=== PATIENT | female | born 1970 | race Hispanic/Latino ===

== ENCOUNTER → 2018-04-05 09:45 | Outpatient (CLI) | payer BC, SELFPAY ==
[2018-04-05 10:46] LABS: Alanine Aminotransferase 33 IU/L (9-52); Albumin 4.2 g/dL (3.5-5.0); Albumin Globulin Ratio 1.4 (1.0-2.8); Alkaline Phosphatase 78 U/L (38-126); Aspartate Aminotransferase 22 IU/L (14-36); BUN Creatinine Ratio 27.5 (6-22); Bilirubin Total 0.4 mg/dL (0.2-1.3); Blood Urea Nitrogen 22 mg/dL (7-17); Calcium 10.4 mg/dL (8.4-10.2); Carbon Dioxide 29 mmol/L (22-32); Chloride 106 mmol/L (98-107); Cholesterol 167 mg/dL (140-199); Estimated Glomerular Filt Rate > 60.0 mL/min (>60); Globulin 2.9 g/dL (1.7-4.1); Glucose 90 mg/dL (70-100); HDL Cholesterol 56 mg/dL (40-60); HEMOLYSIS < 15 (0-50); LDL Cholesterol Calculated 94 mg/dL (<100); Potassium 5.1 mmol/L (3.4-5.1); Sodium 143 mmol/L (137-145); Total Protein 7.1 g/dL (6.3-8.2); Triglycerides 83 mg/dL (35-150)
== END ==
PROVIDERS: PCP Physician Assistant; Visit Provider Physician Assistant
DX: E34.52 Partial androgen insensitivity syndrome (principal); I10 Essential (primary) hypertension; Z13.220 Encounter for screening for lipoid disorders; Z13.6 Encounter for screening for cardiovascular disorders
CPT/HCPCS: 36415; 80053; 80061

== ENCOUNTER → 2018-08-13 13:15 | Outpatient (CLI) | payer BC, SELFPAY ==
[2018-08-13 14:47] LABS: Calcium 9.5 mg/dL (8.4-10.2)
== END ==
PROVIDERS: PCP Physician Assistant; Visit Provider Physician Assistant
DX: E83.52 Hypercalcemia (principal)
CPT/HCPCS: 36415; 82310

== ENCOUNTER → 2018-10-16 08:49 | Outpatient (CLI) | payer BC, SELFPAY ==
--- NOTE | 2018-10-16 08:51 | DI.MG.S_ITS ---
BILATERAL DIGITAL SCREENING MAMMOGRAM 3D/2D WITH CAD: 10/16/2018 CLINICAL: Routine screening. Comparison is made to exams dated: 03/30/2017 mammogram, 02/01/2015 mammogram, and 04/04/2013 mammogram - [facility]. There are scattered fibroglandular elements in both breasts. Current study was also evaluated with a Computer Aided Detection (CAD) system. No significant masses, calcifications, or other findings are seen in either breast. There has been no significant interval change. IMPRESSION: NEGATIVE There is no mammographic evidence of malignancy. A 1 year screening mammogram is recommended. This exam was interpreted at Station ID: [id number]. NOTE: For mammograms, a report in lay terms will be sent to the patient. Approximately 15% of breast malignancies will not be visualized mammographically. In the management of a palpable breast mass, a negative mammogram must not discourage biopsy of a clinically suspicious lesion. Electronically Signed By: Oz saul/jovita:10/18/2018 10:17:23 letter sent: Normal Exam ACR BI-RADS Category 1: Negative 3341F
== END ==
PROVIDERS: PCP Physician Assistant; Visit Provider Physician Assistant
DX: Z12.31 Encounter for screening mammogram for malignant neoplasm of breast (principal)
CPT/HCPCS: 77063; 77067

== ENCOUNTER → 2019-04-21 13:02 | Outpatient (CLI) | payer BC, SELFPAY | PROVIDERS: PCP Physician Assistant | DX: Z23 Encounter for immunization (principal) | CPT/HCPCS: 90471; 90686 ==

== ENCOUNTER → 2019-04-28 09:26 | Outpatient (CLI) | payer BC, SELFPAY ==
[2019-04-28 10:02] LABS: Influenza A and B by PCR Rapid Negative (Negative)
== END ==
PROVIDERS: Visit Provider Physician Assistant
DX: R68.89 Other general symptoms and signs (principal)
CPT/HCPCS: 87400

== ENCOUNTER → 2019-04-28 10:22 | Outpatient (CLI) | payer BC, SELFPAY ==
[2019-04-28 11:46] LABS: Alanine Aminotransferase 34 IU/L (9-52); Albumin 4.1 g/dL (3.5-5.0); Albumin Globulin Ratio 1.3 (1.0-2.8); Alkaline Phosphatase 97 U/L (38-126); Aspartate Aminotransferase 34 IU/L (14-36); Bilirubin Total 0.3 mg/dL (0.2-1.3); Blood Urea Nitrogen 12 mg/dL (7-17); Calcium 10.3 mg/dL (8.4-10.2); Carbon Dioxide 28 mmol/L (22-32); Chloride 104 mmol/L (98-107); Cholesterol 172 mg/dL (140-199); Estimated Glomerular Filt Rate > 60.0 mL/min (>60); Globulin 3.1 g/dL (1.7-4.1); Glucose 93 mg/dL (70-100); HDL Cholesterol 64 mg/dL (40-60); HEMOLYSIS < 15 (0-50); LDL Cholesterol Calculated 87 mg/dL (<100); Potassium 4.7 mmol/L (3.4-5.1); Sodium 141 mmol/L (137-145); Total Protein 7.2 g/dL (6.3-8.2); Triglycerides 106 mg/dL (35-150)
[2019-04-28 12:08] LABS: Creatinine Urine Random 534.1 mg/dL; Microalbumi Creatinin Ratio Ur 9.3 ug/mg CR (<30)
== END ==
PROVIDERS: PCP Physician Assistant; Visit Provider Physician Assistant
DX: Z13.220 Encounter for screening for lipoid disorders (principal); Z13.6 Encounter for screening for cardiovascular disorders; E34.52 Partial androgen insensitivity syndrome; I10 Essential (primary) hypertension; R68.89 Other general symptoms and signs
CPT/HCPCS: 36415; 80053; 80061; 82043; 82570; 87400; 87502

== ENCOUNTER → 2019-05-21 17:26 | Outpatient (CLI) | payer OTHER, BC, SELFPAY ==
--- NOTE | 2019-05-21 17:28 | DI.RAD.S_ITS ---
PROCEDURE: XR FINGER RT MIN 2V INDICATIONS: Impact injury to R index finger, pain with palp to MP join TECHNIQUE: AP hand, 2 views of the index (2nd) finger(s) acquired. COMPARISON: None. FINDINGS: Bones: There is a punctate focus of increased density at the radial base of the proximal phalanx of the index finger. Otherwise, index finger is intact. No displaced fractures or dislocations are evident. There are no suspicious osseous lesions. Soft tissues: No suspicious soft tissue calcifications. Mild soft tissue swelling of the index finger may be present. IMPRESSION: Questionable tiny avulsion fracture involving the radial base of the proximal phalanx of the index finger. Clinical correlation with focal point tenderness is recommended. Dictated by: Dewayne Dubose M.D. on 05/21/2019 at 16:50 Approved by: Dewayne Dubose M.D. on 05/21/2019 at 16:51
== END ==
PROVIDERS: PCP Physician Assistant; Visit Provider Nurse Practitioner
DX: S69.91XA Unspecified injury of right wrist, hand and finger(s), initial encounter (principal); X58.XXXA Exposure to other specified factors, initial encounter
CPT/HCPCS: 73140

== ENCOUNTER → 2019-05-31 12:46 | Outpatient (CLI) | payer OTHER, BC, SELFPAY ==
--- NOTE | 2019-05-31 12:48 | DI.RAD.S_ITS ---
PROCEDURE: XR FINGER RT MIN 2V INDICATIONS: Impact injury to R index finger, pain with palp to MP joint TECHNIQUE: AP hand, 2 views of the right finger(s) acquired. COMPARISON: [facility], , XR FINGER RT MIN 2V, 05/21/2019, 17:25. FINDINGS: Bones: No fractures or dislocations. No suspicious bony lesions. Soft tissues: No suspicious soft tissue calcifications. IMPRESSION: No fracture. If the patient's symptoms do not improve recommend followup radiographs in 10 days to assess for healing sclerosis/occult injury. Dictated by: Jeffery Vasquez M.D. on 05/31/2019 at 15:09 Approved by: Jeffery Vasquez M.D. on 05/31/2019 at 15:10
== END ==
PROVIDERS: PCP Physician Assistant; Visit Provider Physician Assistant
DX: S69.81XA Other specified injuries of right wrist, hand and finger(s), initial encounter (principal); X58.XXXA Exposure to other specified factors, initial encounter
CPT/HCPCS: 73140

== ENCOUNTER 2019-07-15 09:30 | Outpatient (RCR) | payer OTHER, BC, SELFPAY ==
--- NOTE | 2019-06-10 15:27 | OT.OP.EVAL ---
Visit Care Team Role Provider Type Uyen Ferrell PA-C Attending Provider Advanced Management Intern Primary Care Provider Specialty: Medical Address: [address] [place] [address], [address], [place], [address] Email: [email or web address] Occupational Therapy Initial Evaluation OT Outpatient Adult Evaluation Start: 06/15/19 15:07 Freq: Status: Active Protocol: Document 06/10/19 14:30 AMS (Rec: 06/15/19 15:26 AMS [email or web address]) General Information Visit Start Time 13:30 Visit Stop Time 14:18 Total Visit Minutes 48 Plan of Care Dates 06/10/19-07/15/19 Insurance Information [facility] Treatment Setting Outpatient Care Note Type Initial Evaluation Therapy Pain Assessment When Pain Assessed pre-treat Pain Present Pain Reported Right Finger Intensity 1 Scale Used Numeric (1 - 10) Goals Objective Measurements 0-75 degrees active R MCP joint flexion; 0-85 degrees active L MCP joint flexion. Treatment Ultrasound. 20% duty cycle. 2. 2 w/cm2 for swelling management. Proximal dorsal medial surface of R 2nd digit. Skin intact pre- and post- treatment. Carbonation Equipment Tender Goals 1. Nessa will be modified independent with home exercise program utilizing provided written and visual instructions (relative to scar tissue management, edema management, and tendon gliding ). Assessment/Plan Patient Response Excellent Rehabilitation Potential Excellent Treatment Assessment Nessa is a 48 year-old right hand dominant female referred to outpatient OT by her PCP secondary to pain in right finger. Right second digit was injured while manipulating her son's lacrosse rebound trampoline. X-rays were completed and were negative for fracture. PMH: Significant for osteopenia; blood pressure problems. 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 Additional outpatient appointments recommended to address these areas in order to maximize Nessa's success w / active participation in meaningful activities w/ active incorporation of the second digit (e.g., in the work and home environments). Home Exercise Program Please refer to treatment section of note for specific details. Reviewed with Patient Goals,Home Exercise Program Patient Understanding Excellent Comment 5 weeks Treatment Frequency Once a Week Therapeutic Contents Active Range of Motion,Client Education,Functional Activities,Home Exercise Program,Joint Protection, Manual Therapy, Neurodevelopment Treatment, Neuromuscular Re-Education, Stretching/Flexibility Activities,Therapeutic Activities,Therapeutic Exercises,Modalities Patient Instruction Home Exercise Program, Questions/Concerns
--- NOTE | 2019-06-21 09:23 | OT.OP.TRT ---
Visit Care Team Role Provider Type Uyen Ferrell PA-C Attending Provider Advanced Harvesting Supervisor Primary Care Provider Specialty: Medical Address: [address] [place] [address], [address], [place], [address] Email: [email or web address] Occupational Therapy Treatment Note OT Outpatient Treatment Note - Adult Start: 06/15/19 15:07 Freq: Status: Active Protocol: Document 06/21/19 09:15 AMS (Rec: 06/21/19 09:23 AMS [email or web address]) OT Outpatient Adult Treatment Note Session Time Visit Start Time 08:34 Visit Stop Time 09:05 Total Visit Minutes 31 Visit Information Plan of Care Dates 06/10/19-07/15/19 Insurance Information [facility] Setting Treatment Setting Outpatient Care Visit Type Note Type Treatment Note General Information General Information Nessa is a 48 year-old right hand dominant female referred to outpatient OT by her PCP secondary to pain in right finger. Right second digit was injured while manipulating her son's lacrosse rebound trampoline. X-rays were completed and were negative for fracture. PMH: Significant for osteopenia; blood pressure problems. - Subjective Identification Type Name,Picture Observations I have been doing the joint mobs, massage, and glides per Nessa. Chief Complaint(s) Loss of Motion/Stiffness Patient/Caregiver Compliance with Home Excellent Exercise Program - Objective Objective Measurements Decreased pain/discomfort w/ manual work. Improving tendon gliding. Decreased swelling. Decreasing stiffness. Positive response to manual work. Correction Goals 1. Nessa will be modified independent with home exercise program utilizing provided written and visual instructions (relative to scar tissue management, edema management, and tendon gliding ). - Treatment 2 Descriptor Manual therapy. Scar tissue management. Joint mobilization . 1 Descriptor Ultrasound. 20% duty cycle. 2. 3 w/cm2. Proximal dorsal medial surface of R 2nd digit. Skin intact pre- and post- treatment. - Assessment Patient Response to Treatment Excellent Rehab Potential Excellent Assessment of Improvement Decreasing stiffness; improving tendon gliding dorsally. Improving ROM of 2nd digit. (+) compliance w/ HEP. Continued need to address scar tissue/tendon gliding. Home Exercise Program No changes to HEP. - Plan Additional Therapy Recommendations Cont w/ POC vs d/c to HEP
--- NOTE | 2019-07-01 10:30 | OT.OP.TRT ---
Visit Care Team Role Provider Type Uyen Ferrell PA-C Attending Provider Advanced Job Counselor Primary Care Provider Specialty: Medical Address: [address] [place] [address], [address], [place], [address] Email: [email or web address] Occupational Therapy Treatment Note OT Outpatient Treatment Note - Adult Start: 06/15/19 15:07 Freq: Status: Active Protocol: Document 07/01/19 10:15 AMS (Rec: 07/05/19 10:48 AMS [email or web address]) OT Outpatient Adult Treatment Note Session Time Visit Start Time 09:30 Visit Stop Time 10:00 Total Visit Minutes 30 Visit Information Plan of Care Dates 06/10/19-07/15/19 Insurance Information [facility] Setting Treatment Setting Outpatient Care Visit Type Note Type Treatment Note General Information General Information Nessa is a 48 year-old right hand dominant female referred to outpatient OT by her PCP secondary to pain in right finger. Right second digit was injured while manipulating her son's lacrosse rebound trampoline. X-rays were completed and were negative for fracture. PMH: Significant for osteopenia; blood pressure problems. - Subjective Identification Type Name,Picture Observations I have been doing the exercises per Nessa. Chief Complaint(s) Loss of Motion/Stiffness Patient/Caregiver Compliance with Home Excellent Exercise Program - Objective Objective Measurements Decreased pain/discomfort w/ manual work. Improving tendon gliding. Decreased swelling. Decreasing stiffness. Positive response to manual work. Registered Respiratory Technician Goals 1. Nessa will be modified independent with home exercise program utilizing provided written and visual instructions (relative to scar tissue management, edema management, and tendon gliding ). - Treatment 2 Descriptor Manual therapy. Scar tissue management. Joint mobilization . 1 Descriptor Ultrasound. 20% duty cycle. 2. 3 w/cm2. Proximal dorsal medial surface of R 2nd digit. Skin intact pre- and post- treatment. - Assessment Patient Response to Treatment Excellent Rehab Potential Excellent Assessment of Improvement Decreasing stiffness; improving tendon gliding dorsally. Improving ROM of 2nd digit. (+) compliance w/ HEP. Continued need to address scar tissue/tendon gliding. Home Exercise Program Recommended scar tissue mobs w / slight MP joint flexion. Nessa denied questions. - Plan Additional Therapy Recommendations Cont w/ POC vs d/c to HEP
--- NOTE | 2019-07-15 10:23 | OT.OP.DC ---
Visit Care Team Role Provider Type Uyen Ferrell PA-C Attending Provider Advanced Sample Dye Mixer Primary Care Provider Address: [address] [place] [address], [place] [address], [place], [address] Email: [email or web address] OT Outpatient OT Outpatient Adult Evaluation Start: 06/15/19 15:07 Freq: Status: Active Protocol: Document 06/10/19 14:30 AMS (Rec: 06/15/19 15:26 AMS [email or web address]) General Information Session Time Visit Start Time 13:30 Visit Stop Time 14:18 Total Visit Minutes 48 Visit Information Plan of Care Dates 06/10/19-07/15/19 Insurance Information [facility] Setting Treatment Setting Outpatient Care Visit Type Note Type Initial Evaluation Therapy Pain Assessment Pain When Pain Assessed pre-treat Pain Present Pain Present Pain Reported Location Right Finger Intensity 1 Scale Used Numeric (1 - 10) Goals Objective Measurements Objective Measurements 0-75 degrees active R MCP joint flexion; 0-85 degrees active L MCP joint flexion. Treatment Treatment Ultrasound. 20% duty cycle. 2. 2 w/cm2 for swelling management. Proximal dorsal medial surface of R 2nd digit. Skin intact pre- and post- treatment. [facility] Goals Gear Finisher Goals 1. Nessa will be modified independent with home exercise program utilizing provided written and visual instructions (relative to scar tissue management, edema management, and tendon gliding ). Assessment/Plan Assessment Patient Response Excellent Rehabilitation Potential Excellent Treatment Assessment Nessa is a 48 year-old right hand dominant female referred to outpatient OT by her PCP secondary to pain in right finger. Right second digit was injured while manipulating her son's lacrosse rebound trampoline. X-rays were completed and were negative for fracture. PMH: Significant for osteopenia; blood pressure problems. 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 Additional outpatient appointments recommended to address these areas in order to maximize Nessa's success w / active participation in meaningful activities w/ active incorporation of the second digit (e.g., in the work and home environments). Home Exercise Program Please refer to treatment section of note for specific details. Reviewed with Patient Goals,Home Exercise Program Patient Understanding Excellent Plan Comment 5 weeks Treatment Frequency Once a Week Therapeutic Contents Active Range of Motion,Client Education,Functional Activities,Home Exercise Program,Joint Protection, Manual Therapy, Neurodevelopment Treatment, Neuromuscular Re-Education, Stretching/Flexibility Activities,Therapeutic Activities,Therapeutic Exercises,Modalities Patient Instruction Home Exercise Program, Questions/Concerns Sensory Assessment Sensory Profile2 Functional Wrist/Hand Scan Hand Side OT Outpatient Treatment Note - Adult Start: 06/15/19 15:07 Freq: Status: Active Protocol: Document 07/15/19 10:17 AMS (Rec: 07/15/19 10:23 AMS [email or web address]) OT Outpatient Adult Treatment Note Session Time Visit Start Time 09:35 Visit Stop Time 10:05 Total Visit Minutes 30 Visit Information Plan of Care Dates 06/10/19-07/15/19 Insurance Information [facility] Setting Treatment Setting Outpatient Care Visit Type Note Type Treatment Note General Information General Information Nessa is a 48 year-old right hand dominant female referred to outpatient OT by her PCP secondary to pain in right finger. Right second digit was injured while manipulating her son's lacrosse rebound trampoline. X-rays were completed and were negative for fracture. PMH: Significant for osteopenia; blood pressure problems. - Subjective Identification Type Name,Picture Observations It is a lot better per Nessa. Patient/Caregiver Compliance with Home Excellent Exercise Program - Objective Chcf Goals GOALS MET 07/15/19 Nessa will be modified independent with home exercise program utilizing provided written and visual instructions (relative to scar tissue management, edema management, and tendon gliding ). - Treatment 2 Descriptor Manual therapy. Scar tissue management. Joint mobilization . 1 Descriptor Ultrasound. 20% duty cycle. 2. 3 w/cm2. Proximal dorsal medial surface of R 2nd digit. Skin intact pre- and post- treatment. - Assessment Patient Response to Treatment Excellent Rehab Potential Excellent Assessment of Improvement Nessa is presenting w/ decreased stiffness and improving dorsal tendon gliding and AROM of 2nd digit compared to initial evaluation . No squeaking/crepitus noted on this date. Therapist reviewed HEP and answered all questions. D/C to HEP recommended at this time. - Plan Therapy Recommendations Discharge to Home Exercise Program,Discharge from Occupational Therapy
== END 2019-07-18 11:37 ==
LOC: OT 09:30
PROVIDERS: PCP Physician Assistant; Visit Provider Physician Assistant
DX: M79.644 Pain in right finger(s) (principal)
CPT/HCPCS: 97035; 97140; 97165

== ENCOUNTER → 2019-08-26 16:38 | Outpatient (CLI) | payer OTHER, BC, SELFPAY ==
[2019-08-26 17:25] LABS: Influenza A - CEPHEID Flu A POSITIVE (NEGATIVE); Influenza B - CEPHEID Flu B NEGATIVE (NEGATIVE)
== END ==
PROVIDERS: PCP Physician Assistant; Visit Provider Nurse Practitioner Family
DX: R50.9 Fever, unspecified (principal)
CPT/HCPCS: 87502

== ENCOUNTER → 2020-01-04 15:15 | Outpatient (CLI) | payer OTHER, BC, SELFPAY ==
--- NOTE | 2020-01-04 | DI.MG.S_ITS ---
BILATERAL DIGITAL SCREENING MAMMOGRAM 3D/2D WITH CAD: 01/04/2020 CLINICAL: Routine screening. Comparison is made to exams dated: 10/16/2018 mammogram, 03/30/2017 mammogram, and 02/01/2015 mammogram - [facility]. There are scattered fibroglandular elements in both breasts. Current study was also evaluated with a Computer Aided Detection (CAD) system. No significant masses, calcifications, or other findings are seen in either breast. There has been no significant interval change. IMPRESSION: NEGATIVE There is no mammographic evidence of malignancy. A 1 year screening mammogram is recommended. This exam was interpreted at Station ID: [id number]. NOTE: For mammograms, a report in lay terms will be sent to the patient. Approximately 15% of breast malignancies will not be visualized mammographically. In the management of a palpable breast mass, a negative mammogram must not discourage biopsy of a clinically suspicious lesion. Electronically Signed By: Ilana wilkerson/jovita:01/04/2020 15:38:30 copy to: DONAVON CASTRO letter sent: Normal Exam ACR BI-RADS Category 1: Negative 3341F
== END ==
PROVIDERS: PCP Nurse Practitioner; Referring Provider Physician Assistant; Visit Provider Physician Assistant
DX: Z12.31 Encounter for screening mammogram for malignant neoplasm of breast (principal)
CPT/HCPCS: 77063; 77067

== ENCOUNTER → 2020-04-04 11:31 | Outpatient (CLI) | payer OTHER, BC, SELFPAY ==
[2020-04-05 08:48] LABS: COVID19 Sendout Not Detected (Not Detect)
== END ==
PROVIDERS: PCP Nurse Practitioner; Visit Provider Physician Assistant
DX: Z11.59 Encounter for screening for other viral diseases (principal)
CPT/HCPCS: 87635

== ENCOUNTER → 2020-05-17 04:24 | Outpatient (CLI) | payer OTHER, BC, SELFPAY | PROVIDERS: PCP Nurse Practitioner; Referring Provider Internal Medicine; Visit Provider Internal Medicine | DX: Z23 Encounter for immunization (principal) | CPT/HCPCS: 90471; 90686 ==

== ENCOUNTER → 2020-07-25 10:51 | Outpatient (CLI) | payer OTHER, BC, SELFPAY ==
[2020-07-25] MEDS: COVID-19 VACC(MODERNA-1)/PF 100 MCG/0.5 ML VIAL IM (10:56)
== END ==
PROVIDERS: PCP Nurse Practitioner; Visit Provider Internal Medicine
DX: Z23 Encounter for immunization (principal)
CPT/HCPCS: 0011A; 91301

== ENCOUNTER → 2020-08-22 08:03 | Outpatient (CLI) | payer OTHER, BC, SELFPAY ==
[2020-08-22] MEDS: COVID-19 VACC #2, MRNA(MOD) 100 MCG/0.5 ML VIAL IM (08:09)
== END ==
PROVIDERS: PCP Nurse Practitioner; Visit Provider Internal Medicine
DX: Z23 Encounter for immunization (principal)
CPT/HCPCS: 0012A; 91301

== ENCOUNTER → 2020-09-13 08:02 | Outpatient (CLI) | payer OTHER, BC, SELFPAY ==
[2020-09-13 09:17] LABS: Add Manual Diff / Slide Review NO; Basophils Absolute Auto 100 /uL (0-100); Eosinophils Absolute Auto 100 /uL (0-450); Eosinophils Percent Auto 1.8 % (2-4); Hematocrit 37.6 % (36-46); Hemoglobin 12.3 g/dL (12.0-16.0); Lymphocytes Absolute Auto 1600 /uL (1100-4500); Lymphocytes Percent Auto 29.7 % (25-40); Mean Corpuscular HGB Conc 32.7 % (30-36); Mean Corpuscular Hemoglobin 29.7 PG (26-34); Monocytes Absolute Auto 500 /uL (0-900); Monocytes Percent Auto 9.1 % (3-14); Neutrophils Absolute Auto 3100 /uL (1500-7000); Neutrophils Percent Auto 58.4 % (50-75); Platelet Count 316 X10^3/uL (150-400); Red Blood Cell Count 4.13 X10^6/uL (4.0-5.2); Red Cell Distribution Width 13.6 % (11.6-14.8); White Blood Cell Count 5.3 X10^3/uL (4.5-11.0)
[2020-09-13 09:28] LABS: Alanine Aminotransferase 24 IU/L (<35); Albumin 4.3 g/dL (3.5-5.0); Albumin Globulin Ratio 1.3 (1.0-2.8); Alkaline Phosphatase 86 U/L (38-126); Aspartate Aminotransferase 28 IU/L (14-36); BUN Creatinine Ratio 20.9 (6-22); Bilirubin Total 0.3 mg/dL (0.2-1.3); Blood Urea Nitrogen 14 mg/dL (7-17); Calcium 10.3 mg/dL (8.4-10.2); Carbon Dioxide 30 mmol/L (22-32); Chloride 103 mmol/L (98-107); Cholesterol 197 mg/dL (140-199); Estimated Glomerular Filt Rate > 60.0 mL/min (>60); Globulin 3.4 g/dL (1.7-4.1); Glucose 100 mg/dL (70-100); HDL Cholesterol 54 mg/dL (40-60); HEMOLYSIS < 15 (0-50); LDL Cholesterol Calculated 128 mg/dL (<100); Potassium 4.5 mmol/L (3.4-5.1); Sodium 138 mmol/L (137-145); Total Protein 7.7 g/dL (6.3-8.2); Triglycerides 76 mg/dL (35-150)
[2020-09-13 09:50] LABS: Free T3, Triiodothyronine Free 3.29 pg/mL (2.77-5.27); Free T4, Direct Thyroxine 1.08 ng/dL (0.78-2.19)
[2020-09-13 10:04] LABS: Thyroid Stimulating Hormone 3.56 uIU/mL (0.47-4.68)
== END ==
PROVIDERS: PCP Nurse Practitioner; Referring Provider Nurse Practitioner; Visit Provider Internal Medicine Endocrinology, Diabetes & Metabolism
DX: Z00.00 Encounter for general adult medical examination without abnormal findings (principal); E34.52 Partial androgen insensitivity syndrome; I10 Essential (primary) hypertension
CPT/HCPCS: 36415; 80053; 80061; 84403; 84439; 84443; 84481; 85025

== ENCOUNTER → 2020-09-28 13:13 | Outpatient (CLI) | payer OTHER, BC, SELFPAY | PROVIDERS: PCP Nurse Practitioner; Referring Provider Internal Medicine Endocrinology, Diabetes & Metabolism; Visit Provider Internal Medicine Endocrinology, Diabetes & Metabolism | DX: M85.88 Other specified disorders of bone density and structure, other site (principal); Z78.0 Asymptomatic menopausal state; E34.52 Partial androgen insensitivity syndrome; Z90.722 Acquired absence of ovaries, bilateral; Z82.62 Family history of osteoporosis; Z87.891 Personal history of nicotine dependence | CPT/HCPCS: 77080 ==

== ENCOUNTER → 2021-05-14 14:59 | Outpatient (CLI) | payer OTHER, BC, SELFPAY | PROVIDERS: PCP Nurse Practitioner; Referring Provider Internal Medicine; Visit Provider Internal Medicine | DX: Z23 Encounter for immunization (principal) | CPT/HCPCS: 90471; 90686 ==

== ENCOUNTER → 2021-06-19 11:55 | Outpatient (CLI) | payer OTHER, BC, SELFPAY ==
[2021-06-19 14:04] LABS: COVID19 -Nasal RAPID Negative (Negative)
== END ==
PROVIDERS: PCP Nurse Practitioner; Visit Provider Physician Assistant
DX: Z20.822 Contact with and (suspected) exposure to COVID-19 (principal); J02.9 Acute pharyngitis, unspecified; R09.89 Other specified symptoms and signs involving the circulatory and respiratory systems; R52 Pain, unspecified
CPT/HCPCS: 87635

== ENCOUNTER → 2021-10-11 13:23 | Outpatient (CLI) | payer OTHER, BC, SELFPAY ==
--- NOTE | 2021-10-11 13:26 | DI.MG.S_ITS ---
BILATERAL DIGITAL SCREENING MAMMOGRAM 3D/2D WITH CAD: 10/11/2021 CLINICAL: Routine screening. Comparison is made to exams dated: 01/04/2020 mammogram, 10/16/2018 mammogram, and 03/30/2017 mammogram - [facility]. The tissue of both breasts is predominantly fatty. Current study was also evaluated with a Computer Aided Detection (CAD) system. No significant masses, calcifications, or other findings are seen in either breast. There has been no significant interval change. IMPRESSION: NEGATIVE There is no mammographic evidence of malignancy. A 1 year screening mammogram is recommended. This exam was interpreted at Station ID: [id number]. NOTE: For mammograms, a report in lay terms will be sent to the patient. Approximately 15% of breast malignancies will not be visualized mammographically. In the management of a palpable breast mass, a negative mammogram must not discourage biopsy of a clinically suspicious lesion. Electronically Signed By: Jessica diaz/jovita:10/11/2021 15:31:06 copy to: DONAVON CASTRO letter sent: Normal Exam ACR BI-RADS Category 1: Negative 3341F
== END ==
PROVIDERS: PCP Nurse Practitioner; Referring Provider Nurse Practitioner; Visit Provider Nurse Practitioner
DX: Z12.31 Encounter for screening mammogram for malignant neoplasm of breast (principal)
CPT/HCPCS: 77063; 77067

== ENCOUNTER → 2021-11-25 09:31 | Outpatient (CLI) | payer OTHER, BC, SELFPAY ==
[2021-11-25 09:56] LABS: Add Manual Diff / Slide Review NO; Basophils Absolute Auto 0 /uL (0-100); Basophils Percent Auto 1.1 % (0-2); Eosinophils Absolute Auto 100 /uL (0-450); Hematocrit 37.6 % (36-46); Hemoglobin 12.5 g/dL (12.0-16.0); Lymphocytes Absolute Auto 1400 /uL (1100-4500); Lymphocytes Percent Auto 29.4 % (25-40); Mean Corpuscular HGB Conc 33.2 % (30-36); Mean Corpuscular Hemoglobin 30.1 PG (26-34); Mean Corpuscular Volume 90.4 fL (80-100); Monocytes Absolute Auto 400 /uL (0-900); Monocytes Percent Auto 9.1 % (3-14); Neutrophils Absolute Auto 2700 /uL (1500-7000); Neutrophils Percent Auto 58.4 % (50-75); Platelet Count 315 X10^3/uL (150-400); Red Blood Cell Count 4.16 X10^6/uL (4.0-5.2); Red Cell Distribution Width 13.4 % (11.6-14.8); White Blood Cell Count 4.7 X10^3/uL (4.5-11.0)
[2021-11-25 10:26] LABS: Alanine Aminotransferase 23 IU/L (<35); Albumin 4.3 g/dL (3.5-5.0); Albumin Globulin Ratio 1.3 (1.0-2.8); Aspartate Aminotransferase 26 IU/L (14-36); BUN Creatinine Ratio 27.1 (6-22); Bilirubin Total 0.3 mg/dL (0.2-1.3); Blood Urea Nitrogen 19 mg/dL (7-17); Calcium 9.4 mg/dL (8.4-10.2); Carbon Dioxide 29 mmol/L (22-32); Chloride 106 mmol/L (98-107); Cholesterol 197 mg/dL (140-199); Estimated Glomerular Filt Rate > 60 mL/min (>60); Globulin 3.3 g/dL (1.7-4.1); Glucose 101 mg/dL (70-100); HDL Cholesterol 60 mg/dL (40-60); HEMOLYSIS < 15 (0-50); LDL Cholesterol Calculated 121 mg/dL (<100); Potassium 4.6 mmol/L (3.4-5.1); Sodium 138 mmol/L (137-145); Total Protein 7.6 g/dL (6.3-8.2); Triglycerides 78 mg/dL (35-150)
[2021-11-25 10:31] LABS: Alkaline Phosphatase 84 U/L (38-126)
[2021-11-25 10:43] LABS: Free T3, Triiodothyronine Free 3.45 pg/mL (2.77-5.27); Free T4, Direct Thyroxine 1.02 ng/dL (0.78-2.19)
[2021-11-25 10:57] LABS: Thyroid Stimulating Hormone 2.46 uIU/mL (0.47-4.68)
[2021-11-25 12:05] LABS: Creatinine Urine Random 105.2 mg/dL
[2021-11-25 12:12] LABS: Microalbumi Creatinin Ratio Ur 11.4 ug/mg CR (<30); Microalbumin Urine Random 1.2 mg/dL (0-1.6)
== END ==
PROVIDERS: PCP Nurse Practitioner; Referring Provider Nurse Practitioner; Visit Provider Nurse Practitioner
DX: Z00.00 Encounter for general adult medical examination without abnormal findings (principal); I10 Essential (primary) hypertension
CPT/HCPCS: 36415; 80053; 80061; 82043; 82570; 84439; 84443; 84481; 85025

== ENCOUNTER → 2022-07-09 09:16 | Outpatient (CLI) | payer OTHER, SELFPAY ==
[2022-07-09 11:05] LABS: COVID19 -Nasal RAPID Negative (Negative)
== END ==
PROVIDERS: PCP Nurse Practitioner; Visit Provider Surgery
DX: Z01.812 Encounter for preprocedural laboratory examination (principal); Z20.822 Contact with and (suspected) exposure to COVID-19
CPT/HCPCS: 87635; C9803

== ENCOUNTER 2022-07-10 08:07 | Day surgery (SDC) | payer OTHER, SELFPAY ==
[2022-07-10 08:19] VITALS: BP 121/79; PULSE 68; RESP 16; TEMP 36.6; O2SAT 98; BMI 33.5
[2022-07-10] MEDS: LACTATED RINGERS 1,000 ML 42 ML IV (08:36)
--- NOTE | 2022-07-10 09:54 | PM.HP.1 ---
History of Present Illness History of Present Illness Date Patient Seen: 07/10/22 Time Patient Seen: 09:54 Chief complaint: SDC Narrative: Nessa is a 51-year-old woman who is due for colonoscopy for colon cancer screening. She has no known family history of colon cancer. She is never had a colonoscopy before. Patient History Medical History (Updated 07/10/22 @ 09:54 by Shamir Dockery MD) Ankle pain (2014) Bulimia (1989) Chickenpox (1980) Depression (1992) Hypertension (2007) Osteopenia (2002) Partial androgen insensitivity syndrome Shoulder pain (2012) Surgical History Hx of surgical procedure (1984) Status post orchiectomy (1984) Family & Social History Family History Grandfather Diabetes mellitus Grandmother Hypertension Mother Age: 69 Hypertension High cholesterol Social History: household members spouse Tobacco & Substance use: Smoking Status Former smoker alcohol intake current alcohol intake frequency a few times a week Substance Use Type does not use Meds Home Medications and Allergies Home Medications Medication Instructions Recorded Confirmed Type [VITAMIN D3] 5,000 iu PO EVERY OTHER DAY ##0 02/20/16 07/10/22 History esterified 1 tab PO QDAY #90 tabs 11/25/21 07/10/22 Rx estrogens-methyltestosterone 0.625 mg-1.25 mg tablet (EEMT HS) lisinopril 10 mg tablet 10 mg PO DAILY #90 tabs 11/25/21 07/10/22 Rx psyllium husk 1 cap PO .COMPLEX 11/25/21 07/10/22 History sodium sul 1.479 gram-potas ch See Rx Instructions PO PER PKG DIR 05/05/22 Rx 0.188 gram-magnes sul 0.225 gram #24 tabs tablet (Sutab) Allergies Allergy/AdvReac Type Severity Reaction Status Date / Time No Known Drug Allergies Allergy Verified 07/10/22 08:34 Exam Vital Signs (past 8 hours): - 07/10/22 08:19 Temperature 97.8 F Pulse Rate 68 Respiratory Rate 16 Blood Pressure 121/79 Pulse Oximetry 98 Oxygen Delivery Method Room Air Oxygen Delivery Method Room Air Const General: healthy appearing Assessment & Plan Assessment and plan (1) Colon cancer screening: Status: Acute Plan We reviewed the risks and benefits of colonoscopy and she would like to proceed. Time Spent With Patient Critical Care time: I spent a total of [] minutes of critical care time on this patient's care today; this time is exclusive of procedural time.
--- NOTE | 2022-07-10 10:19 | PM.OP.COLON ---
Operative Date/Time/Diagnoses Date of procedure: 07/10/22 Time of procedure: 10:19 Pre-op diagnosis: Colon cancer screening Procedure & Clinicians Study performed: Colonoscopy Same procedure as scheduled: Yes Surgeon: Shamir Dockery Procedure Notes Procedure in detail: Surgeon: Shamir Dockery MD Anesthesia: Cierra Byrd CRNA Procedure: The patient was brought to the endoscopy suite, placed in left lateral decubitus position. The patient was connected to monitoring devices. A time-out was performed. Sedation was administered. Once the patient was adequately sedated, a digital rectal exam was performed and was normal. The scope was then inserted and advanced to the cecum where the appendiceal orifice was identified and photographed. The scope was then slowly withdrawn over greater than 6 minutes. The mucosa was thoroughly inspected. No abnormalities were seen. The scope was retroflexed in the rectum. No were noted. The scope was straightened and removed. The patient was awakened and brought to recovery. Scope withdrawal time: 7 minutes Sedation time: 14 minutes EBL: 0 Findings: Normal colon Post-procedure Recommendations: Colonoscopy in 10 years Disposition: PACU
[2022-07-10 10:20] VITALS: BP 106/73; PULSE 78; RESP 14; TEMP 36.6; O2SAT 97
[2022-07-10 10:25] VITALS: BP 107/73; PULSE 67; RESP 14; O2SAT 98
[2022-07-10 10:30] VITALS: BP 114/83; PULSE 75; RESP 18; O2SAT 98
[2022-07-10 10:37] VITALS: BP 124/73; PULSE 76; RESP 14; TEMP 36.6; O2SAT 98
== END 2022-07-10 10:55 | disposition home or self-care (01) ==
PROVIDERS: Surgery; PCP Nurse Practitioner; Referring Provider Surgery; Visit Provider Surgery
PROC: 0DJD8ZZ Inspection of Lower Intestinal Tract, Via Natural or Artificial Opening Endoscopic (ICD-10-PCS; CPT 45378; principal; 2022-07-10 09:15)
DX: Z12.11 Encounter for screening for malignant neoplasm of colon (principal)
CPT/HCPCS: 45378; J2704

== ENCOUNTER → 2023-02-16 07:00 | Outpatient (CLI) | payer OTHER, SELFPAY ==
[2023-02-16 07:23] LABS: Add Manual Diff / Slide Review NO; Basophils Absolute Auto 100 /uL (0-100); Eosinophils Absolute Auto 200 /uL (0-450); Eosinophils Percent Auto 2.6 % (2-4); Hematocrit 36.9 % (36-46); Hemoglobin 12.3 g/dL (12.0-16.0); Lymphocytes Absolute Auto 1800 /uL (1100-4500); Lymphocytes Percent Auto 29.8 % (25-40); Mean Corpuscular HGB Conc 33.3 % (30-36); Mean Corpuscular Hemoglobin 30.1 PG (26-34); Mean Corpuscular Volume 90.3 fL (80-100); Monocytes Absolute Auto 600 /uL (0-900); Monocytes Percent Auto 9.4 % (3-14); Neutrophils Absolute Auto 3400 /uL (1500-7000); Neutrophils Percent Auto 57.2 % (50-75); Platelet Count 331 X10^3/uL (150-400); Red Blood Cell Count 4.08 X10^6/uL (4.0-5.2); Red Cell Distribution Width 14.3 % (11.6-14.8); White Blood Cell Count 5.9 X10^3/uL (4.5-11.0)
[2023-02-16 07:32] LABS: Alanine Aminotransferase 23 IU/L (<35); Albumin 4.1 g/dL (3.5-5.0); Albumin Globulin Ratio 1.4 (1.0-2.8); Alkaline Phosphatase 91 U/L (38-126); Aspartate Aminotransferase 23 IU/L (14-36); BUN Creatinine Ratio 19.1 (6-22); Bilirubin Total 0.5 mg/dL (0.2-1.3); Blood Urea Nitrogen 13 mg/dL (7-17); Calcium 9.8 mg/dL (8.4-10.2); Carbon Dioxide 29 mmol/L (22-32); Chloride 103 mmol/L (98-107); Cholesterol 182 mg/dL (140-199); Estimated Glomerular Filt Rate > 60 mL/min (>60); Glucose 96 mg/dL (70-100); HDL Cholesterol 52 mg/dL (40-60); HEMOLYSIS < 15 (0-50); LDL Cholesterol Calculated 108 mg/dL (<100); Potassium 4.3 mmol/L (3.4-5.1); Sodium 137 mmol/L (137-145); Total Protein 7.1 g/dL (6.3-8.2); Triglycerides 110 mg/dL (35-150)
[2023-02-16 07:48] LABS: Free T3, Triiodothyronine Free 4.19 pg/mL (2.77-5.27); Free T4, Direct Thyroxine 1.04 ng/dL (0.78-2.19)
[2023-02-16 08:02] LABS: Thyroid Stimulating Hormone 2.87 uIU/mL (0.47-4.68)
== END ==
PROVIDERS: PCP Nurse Practitioner; Referring Provider Nurse Practitioner; Visit Provider Nurse Practitioner
DX: Z00.00 Encounter for general adult medical examination without abnormal findings (principal)
CPT/HCPCS: 36415; 80053; 80061; 84439; 84443; 84481; 85025

== ENCOUNTER → 2023-02-23 12:09 | Outpatient (CLI) | payer OTHER, SELFPAY ==
--- NOTE | 2023-02-23 12:21 | DI.MG.S_ITS ---
BILATERAL DIGITAL SCREENING MAMMOGRAM 3D/2D WITH CAD: 02/23/2023 CLINICAL: Routine screening. Comparison is made to exams dated: 10/11/2021 mammogram, 01/04/2020 mammogram, and 10/16/2018 mammogram - [facility]. There are scattered areas of fibroglandular density in both breasts (category b / 25%-50% glandular tissue). Current study was also evaluated with a Computer Aided Detection (CAD) system. No significant masses, calcifications, or other findings are seen in either breast. There has been no significant interval change. IMPRESSION: NEGATIVE There is no mammographic evidence of malignancy. A 1 year screening mammogram is recommended. Based on the Tyrer Cuzick model (a risk assessment model) the patient's lifetime risk is 7.0% and her 10 year risk is 1.7%. According to the ACR, ACS, and NCCN guidelines, an annual breast MRI exam along with mammogram is recommended if the patient's lifetime risk is 20% or greater. This exam was interpreted at Station ID: [id number]. NOTE: For mammograms, a report in lay terms will be sent to the patient. Approximately 15% of breast malignancies will not be visualized mammographically. In the management of a palpable breast mass, a negative mammogram must not discourage biopsy of a clinically suspicious lesion. Electronically Signed By: Ilana wilkerson/jovita:02/23/2023 16:13:31 copy to: DONAVON CASTRO letter sent: Normal Exam ACR BI-RADS Category 1: Negative [id number]
[2023-02-23 16:21] LABS: Creatinine Urine Random 110.7 mg/dL
== END ==
PROVIDERS: PCP Nurse Practitioner; Referring Provider Nurse Practitioner; Visit Provider Nurse Practitioner
DX: Z12.31 Encounter for screening mammogram for malignant neoplasm of breast (principal)
CPT/HCPCS: 77063; 77067; 82043; 82570

== ENCOUNTER → 2025-02-15 13:03 | Outpatient (CLI) | payer OTHER, SELFPAY ==
[2025-02-15 14:46] LABS: Alanine Aminotransferase 17 IU/L (<35); Albumin 4.0 g/dL (3.5-5.0); Albumin Globulin Ratio 1.5 (1.0-2.8); Alkaline Phosphatase 76 U/L (38-126); Blood Urea Nitrogen 15 mg/dL (7-17); Calcium 9.6 mg/dL (8.4-10.2); Carbon Dioxide 24 mmol/L (22-32); Chloride 105 mmol/L (98-107); Estimated Glomerular Filt Rate > 60 mL/min (>60); Globulin 2.7 g/dL (1.7-4.1); Glucose 89 mg/dL (70-99); HEMOLYSIS < 15 (0-50); Lipase 40 U/L (23-300); Potassium 5.0 mmol/L (3.4-5.1); Sodium 136 mmol/L (137-145); Total Protein 6.7 g/dL (6.3-8.2)
== END ==
PROVIDERS: PCP Nurse Practitioner; Referring Provider Family Medicine; Visit Provider Family Medicine
DX: K30 Functional dyspepsia (principal)
CPT/HCPCS: 36415; 80053; 83690